=== PATIENT | female | born 1985 | race Caucasian/White ===

== ENCOUNTER 2019-12-06 18:52 | Emergency (ER) | payer OTHER, SELFPAY ==
[2019-12-06 19:33] VITALS: PULSE 78; RESP 18; TEMP 36.6; O2SAT 100
[2019-12-06 20:00] VITALS: BP 136/63
--- NOTE | 2019-12-06 20:20 | ED_ITS ---
HPI - Headache <MAGY Ramos - Last Filed: 12/06/19 21:59> General Chief Complaint: Headache Stated Complaint: Migraine Time Seen by Provider: 12/06/19 19:32 Mode of arrival: Ambulatory Limitations: no limitations History of Present Illness HPI Narrative: 34-year-old female presenting to the emergency department complaining of a migraine that started this morning around 5:00 a.m.. She states she has a history of migraines and this is similar, she usually takes and Excedrin, drinks a Mountain Dew, and takes a nap with a cold rag over his head, however, this is not relieve her migraine today. She took another Excedrin migraine around 2:00 p.m. which reduced the pain but she continues to have symptoms. She reports a dull aching pain crossed her forehead in into temples bilaterally, photophobia, nausea and vomiting, and an occasional or as of ?flashing lights in her vision ?which again she states is normal for her. Patient denies any vision loss, double vision, vertigo, chest pain, shortness of breath, abdominal pain, diarrhea, cough, fevers, or any other concerns. Related Data Previous Rx's Medication Instructions Recorded metoclopramide HCl [Reglan] 10 mg PO Q6H PRN #14 tab 12/06/19 Review of Systems <MGAY Ramos - Last Filed: 12/06/19 21:59> Review of Systems Narrative: REVIEW OF SYSTEMS: GENERAL: Denies fever or chills. HENT: No head trauma. Complains of headache, see HPI. EYES: No loss of vision, double vision, eye pain, or irritation. CARDIOVASCULAR: No chest pain or syncope. RESPIRATORY: No shortness of breath or cough. GASTROINTESTINAL: Complains of vomiting, HPI. GENITOURINARY: No flank pain or dysuria. MUSCULOSKELETAL: No pain, weakness, or deformities. INTEGUMENTARY: No rash, lesions, or pruritus. NEURO: No numbness, tingling, memory loss, or confusion. PSYCH: No behavior or mood changes. Patient History <MAGY Ramos - Last Filed: 12/06/19 21:59> Medical History No significant medical problems (Acute) Social History Smoking Status: Never smoker Smoking Status: Never smoker Substance Use Type: does not use Exam <MAGY Ramos - Last Filed: 12/06/19 21:59> Initial Vital Signs Initial Vital Signs: Vital Signs Temperature 97.9 F 12/06/19 19:33 Pulse Rate 78 12/06/19 19:33 Respiratory Rate 18 12/06/19 19:33 Pulse Oximetry 100 12/06/19 19:33 PHYSICAL EXAMINATION: GENERAL: Well groomed, alert, and cooperative. Answers questions promptly and appropriately. Vital signs noted. HENT: Normocephalic, atraumatic. Ear canals patent. Oral mucosa is pink and moist. EYES: Conjunctiva pink, sclera white, no periorbital swelling. CHEST: Normal to inspection and without deformities. CARDIOVASCULAR: S1 and S2 sounds normal. Regular rate and rhythm, no murmurs, clicks, or bruits. No pedal edema. RESPIRATORY: Normal respiratory rate, trachea midline, airway patent. No stridor, nasal flaring or accessory muscle use. Lungs are clear in all salgado without wheeze, rhonchi, or crackles. GASTROINTESTINAL: Bowel sounds normoactive. Abdomen is soft and non-tender. No organomegaly. MUSCULOSKELETAL: Normal gait and coordination. Equal tone and mass bilaterally. EXTREMITIES: CMS intact. Moves all extremities. SKIN: Warm, dry, soft, appropriate color for ethnicity. No lesions, rashes, or wounds. NEURO: Alert and Oriented X 3. CN III-XII grossly intact. Good coordination. No ataxia, or sensory deficits, or cognitive issues. PSYCH: Appropriate affect and mood. <Eliceo Olsen DO - Last Filed: 12/07/19 02:24> Initial Vital Signs Initial Vital Signs: Vital Signs Temperature 97.9 F 12/06/19 19:33 Pulse Rate 78 12/06/19 19:33 Respiratory Rate 18 12/06/19 19:33 Pulse Oximetry 100 12/06/19 19:33 Course <MAGY Ramos - Last Filed: 12/06/19 21:59> Course Course Narrative: Patient was given IV Benadryl, Toradol, Reglan, and fluids to help with headache. 30 minutes after administration of medication, patient states her headache was completely relieved. She was able to eat and drink without nausea or vomiting. Patient was discharged home per request. Orders Ordered: Discontinued Medications Diphenhydramine HCl (Benadryl) 25 mg IV NOW ONE Stop: 12/06/19 20:07 Last Admin: 12/06/19 20:55 Dose: 25 mg Documented by: LUIS Sodium Chloride (Normal Saline 0.9%) 1,000 mls @ 1,000 mls/hr IV BOLUS ONE Stop: 12/06/19 21:05 Last Infusion: 12/06/19 22:00 Dose: 0 mls/hr Documented by: Admin: 12/06/19 20:57 Dose: 1,000 mls/hr Documented by: LUIS Ketorolac Tromethamine (Toradol) 30 mg IV NOW ONE Stop: 12/06/19 20:07 Last Admin: 12/06/19 20:50 Dose: 30 mg Documented by: LUIS Metoclopramide HCl (Reglan) 10 mg IV NOW ONE Stop: 12/06/19 20:07 Last Admin: 12/06/19 20:57 Dose: 10 mg Documented by: LUIS Vital Signs Vital signs: Vital Signs - 8 hr 12/06/19 19:33 12/06/19 20:00 12/06/19 21:32 Temperature 97.9 F Pulse Rate 78 75 Respiratory Rate 18 16 Blood Pressure [Right Arm] 136/63 141/81 H Pulse Oximetry 100 99 <Eliceo Olsen, DO - Last Filed: 12/07/19 02:24> Orders Ordered: Discontinued Medications Diphenhydramine HCl (Benadryl) 25 mg IV NOW ONE Stop: 12/06/19 20:07 Last Admin: 12/06/19 20:55 Dose: 25 mg Documented by: LUIS Sodium Chloride (Normal Saline 0.9%) 1,000 mls @ 1,000 mls/hr IV BOLUS ONE Stop: 12/06/19 21:05 Last Infusion: 12/06/19 22:00 Dose: 0 mls/hr Documented by: Admin: 12/06/19 20:57 Dose: 1,000 mls/hr Documented by: LUIS Ketorolac Tromethamine (Toradol) 30 mg IV NOW ONE Stop: 03/05/20 20:07 Last Admin: 12/06/19 20:50 Dose: 30 mg Documented by: LUIS Metoclopramide HCl (Reglan) 10 mg IV NOW ONE Stop: 12/06/19 20:07 Last Admin: 12/06/19 20:57 Dose: 10 mg Documented by: LUIS Vital Signs Vital signs: Vital Signs - 8 hr 12/06/19 19:33 12/06/19 20:00 12/06/19 21:32 Temperature 97.9 F Pulse Rate 78 75 Respiratory Rate 18 16 Blood Pressure [Right Arm] 136/63 141/81 H Pulse Oximetry 100 99 MDM - Headache <MAGY Ramos - Last Filed: 12/06/19 21:59> Medical Records Attestation: I reviewed the patient's medical records. Lab Data Attestation: I reviewed the patient's lab results. [facility] Narrative Medical decision making narrative: This is a 34-year-old female with a history of migraines who presents for a migraine that is very similar nature but is not relieved with her usual abortive therapy. Patient reports complete resolution of migraine after administration of IV medications, she is able to eat and drink without difficulty, nausea, or vomiting which decreases my suspicion for severe cranial etiology. Additionally, patient's neuro examination was intact. She was discharged with a prescription for Reglan and told of her headache was to return to take Reglan, Benadryl, and ibuprofen to help with her headache. She was encouraged to follow up with her primary care provider in the next few weeks for further evaluation if she continues to have headaches. Strict return precautions were given for new or worsening symptoms. Patient agrees with plan of care verbalized understanding. Discharge Plan Departure Patient Disposition: Home Clinical Impression: Migraine Qualifiers: Migraine type: with aura Status migrainosus presence: without status migrainosus Intractability: not intractable Qualified Code(s): G43.109 - Migraine with aura, not intractable, without status migrainosus Discharge Date/Time: 12/06/19 22:01 Instructions: DI for Migraine Activity Restrictions/Additional Instructions: Thank you for entrusting me with your care today. As discussed, I prescribed you Reglan (metoclopramide) which helps with nausea. If your headache returns within the next 24-48 hours, take a pill of Reglan, 400-600 mg of ibuprofen, and 25 mg of Benadryl the 1st sign of a headache returning. Increased fluids and rest as needed. Follow up with your primary care provider to discuss further migraine prevention if symptoms continue. Return emergency department for any new or worsening symptoms such as severe pain, uncontrollable vomiting, chest pain, fevers, or any other concerns. Prescriptions: New metoclopramide HCl [Reglan] 10 mg tablet 10 mg PO Q6H PRN (Reason: nausea and vomiting) Qty: 14 RF: 0 <Eliceo Olsen DO - Last Filed: 12/07/19 02:24> Sign Out Provider Sign Out Attestation: I was immediately available in the department for consultation. This documentation has been reviewed and I agree with assessment and plan. Supervised by Eliceo Olsen DO
[2019-12-06] MEDS: KETOROLAC 60 MG/2 ML VIAL 30 MG IV (20:50)
[2019-12-06] MEDS: diphenhydrAMINE 50 MG/ML VIAL 25 MG IV (20:55)
[2019-12-06] MEDS: METOCLOPRAMIDE 10 MG/2 ML INJ IV (20:57)
[2019-12-06] MEDS: SODIUM CHLORIDE 0.9% 1,000 ML 1000 ML IV (20:57)
[2019-12-06 21:32] VITALS: BP 141/81; PULSE 75; RESP 16; O2SAT 99
--- NOTE | 2019-12-06 21:36 | PC.NURSE ---
Water and crackers provided per provider.
== END 2019-12-06 22:01 | disposition home or self-care (01) ==
PROVIDERS: Emergency Provider Nurse Practitioner
DX: G43.109 Migraine with aura, not intractable, without status migrainosus (principal)
CPT/HCPCS: 96361; 96374; 96375; 99284; J1200; J1885; J2765

== ENCOUNTER 2020-07-25 16:29 | Emergency (ER) | payer OTHER, SELFPAY ==
[2020-07-25 16:36] VITALS: BP 156/92; PULSE 79; RESP 18; TEMP 36.4; O2SAT 99; BMI 29.2
[2020-07-25] MEDS: SODIUM CHLORIDE 0.9% 1,000 ML 1000 ML IV (17:43)
[2020-07-25] MEDS: KETOROLAC 60 MG/2 ML VIAL 30 MG IV (17:43)
[2020-07-25] MEDS: METOCLOPRAMIDE 10 MG/2 ML INJ IV (17:44)
[2020-07-25] MEDS: diphenhydrAMINE 50 MG/ML VIAL 25 MG IV (17:45)
[2020-07-25 18:02] VITALS: BP 144/82; PULSE 79; O2SAT 100
--- NOTE | 2020-07-25 18:54 | ED.HA ---
HPI - Headache <PAVITHRA Daniels - Last Filed: 07/25/20 19:00> General Chief Complaint: Headache Stated Complaint: MIGRAINE Time Seen by Provider: 07/25/20 17:07 Source: patient Mode of arrival: Family Vehicle Limitations: no limitations History of Present Illness HPI Narrative: The patient is a 35-year-old female nonsmoker with history of migraines who presents with a chief complaint of migraine since last night. She states that normal she takes Excedrin and drinks amount do and feels better. However today it has not improved. She complains of photophobia, phonophobia, nausea and vomiting x2. She did have an aura, no thunderclap sensation she states that this is a typical bad migraine for her. She denies any confusion or slurred speech. She is requesting a headache cocktail which she has received here before she also has history of a molar . She states she is on day 2 of her menstrual cycle. Related Data Previous Rx's Medication Instructions Recorded metoclopramide HCl [Reglan] 10 mg PO Q6H PRN #14 tab 12/06/19 Allergies Allergy/AdvReac Type Severity Reaction Status Date / Time dextromethorphan Allergy Rash Verified 07/25/20 16:42 [From [place]] Review of Systems <PAVITHRA Daneils - Last Filed: 07/25/20 19:00> Review of Systems Narrative: GENERAL: Denies chills, fatigue, malaise, fever, sweats. HEENT: Denies sinus pain, ear pain, sore throat, difficulty swallowing, dizziness. RESPIRATORY: Denies dyspnea, cough, wheezing, hemoptysis, sputum. CARDIOVASCULAR: Denies chest pain, palpitations, orthopnea, edema, GASTROINTESTINAL: Denies nausea, vomiting, abdominal pain, diarrhea, constipation, melena. : Denies dysuria, frequency, incontinence, hematuria, urinary retention. MUSCULOSKELETAL: denies weakness, joint pain, or bony pain SKIN: Denies rash, skin lesions, or other NEUROLOGIC: See HPI PSYCHIATRIC: No concerning psychosocial issues. 12 point review of systems is negative except for those stated above Patient History <PAVITHRA Daniels - Last Filed: 07/25/20 19:00> Medical History (Updated 07/25/20 @ 18:57 by PAVITHRA Daniels) History of molar (Acute) No significant medical problems (Acute) Social History Smoking Status: Never smoker Smoking Status: Never smoker alcohol intake frequency: 0-2 drinks per day Substance Use Type: does not use Exam <PAVITHRA Daniels - Last Filed: 07/25/20 19:00> Narrative Exam Narrative: GENERAL: This is a well-nourished, well-developed patient, in no acute distress HEAD: Atraumatic. Normocephalic. No temporal or scalp tenderness. EYES: Pupils equal round and reactive. Extraocular motions intact. No scleral icterus. No injection or drainage. No nystagmus bilaterally. ENT: Nose without bleeding, purulent drainage or septal hematoma. Throat without erythema, tonsillar hypertrophy or exudate. Uvula midline. Airway patent. NECK: Trachea midline. No JVD or lymphadenopathy. Supple, nontender, no meningeal signs. CARDIOVASCULAR: Regular rate and rhythm RESPIRATORY: Clear to auscultation. Breath sounds equal bilaterally. No wheezes, rales, or rhonchi. No cough. No increased respiratory effort. No accessory muscle use. GASTROINTESTINAL: Abdomen soft, non-tender, nondistended. No hepato-splenomegaly, or palpable masses. No guarding. EXTREMITIES: No clubbing, cyanosis, or edema. No joint tenderness, effusion, or edema noted. BACK: Nontender without deformity or crepitance. No flank tenderness. NEURO: AOx3. Clear speech. No gross cranial nerve deficit. Strength is equal upper lower extremities bilaterally. Stable gait. SKIN: No rash or erythema on visible skin Initial Vital Signs Initial Vital Signs: Vital Signs Temperature 97.5 F L 07/25/20 16:36 Pulse Rate 79 07/25/20 16:36 Respiratory Rate 18 07/25/20 16:36 Blood Pressure 156/92 H 07/25/20 16:36 Pulse Oximetry 99 07/25/20 16:36 <Alia Fitch DO - Last Filed: 07/26/20 07:29> Initial Vital Signs Initial Vital Signs: Vital Signs Temperature 97.5 F L 07/25/20 16:36 Pulse Rate 79 07/25/20 16:36 Respiratory Rate 18 07/25/20 16:36 Blood Pressure 156/92 H 07/25/20 16:36 Pulse Oximetry 99 07/25/20 16:36 Scores <PAVIHTRA Daniels - Last Filed: 07/25/20 19:00> GCS [place] coma scale eye opening: Spontaneous [place] coma scale verbal response: Orientated [place] coma scale motor response: Obey commands [place] coma scale total score: 15 Course <PAVITHRA Daniels - Last Filed: 07/25/20 19:00> Orders Ordered: Discontinued Medications Diphenhydramine HCl (Benadryl) 25 mg IV NOW ONE Stop: 07/25/20 17:30 Last Admin: 07/25/20 17:45 Dose: 25 mg Documented by: RMARTIN Sodium Chloride (Normal Saline 0.9%) 1,000 mls @ 1,000 mls/hr IV BOLUS ONE Stop: 07/25/20 18:28 Last Infusion: 07/25/20 19:00 Dose: 0 mls/hr Documented by: Admin: 07/25/20 17:43 Dose: 1,000 mls/hr Documented by: MARIOIN Ketorolac Tromethamine (Toradol) 30 mg IV NOW ONE Stop: 07/25/20 17:30 Last Admin: 07/25/20 17:43 Dose: 30 mg Documented by: MARIOIN Metoclopramide HCl (Reglan) 10 mg IV NOW ONE Stop: 07/25/20 17:30 Last Admin: 07/25/20 17:44 Dose: 10 mg Documented by: RANDEE Vital Signs Vital signs: Vital Signs - 8 hr 07/25/20 16:36 07/25/20 18:02 Temperature 97.5 F L Pulse Rate 79 79 Respiratory Rate 18 Blood Pressure 156/92 H 144/82 H Pulse Oximetry 99 100 <Alia Fitch DO - Last Filed: 07/26/20 07:29> Orders Ordered: Discontinued Medications Diphenhydramine HCl (Benadryl) 25 mg IV NOW ONE Stop: 07/25/20 17:30 Last Admin: 07/25/20 17:45 Dose: 25 mg Documented by: RMARTIN Sodium Chloride (Normal Saline 0.9%) 1,000 mls @ 1,000 mls/hr IV BOLUS ONE Stop: 07/25/20 18:28 Last Infusion: 07/25/20 19:00 Dose: 0 mls/hr Documented by: Admin: 07/25/20 17:43 Dose: 1,000 mls/hr Documented by: RANDEE Ketorolac Tromethamine (Toradol) 30 mg IV NOW ONE Stop: 07/25/20 17:30 Last Admin: 07/25/20 17:43 Dose: 30 mg Documented by: RANDEE Metoclopramide HCl (Reglan) 10 mg IV NOW ONE Stop: 07/25/20 17:30 Last Admin: 07/25/20 17:44 Dose: 10 mg Documented by: RANDEE Vital Signs Vital signs: Vital Signs - 8 hr 07/25/20 16:36 07/25/20 18:02 Temperature 97.5 F L Pulse Rate 79 79 Respiratory Rate 18 Blood Pressure 156/92 H 144/82 H Pulse Oximetry 99 100 MDM - Headache <JEAN-PIERRE Daniels- - Last Filed: 07/25/20 19:00> MDM Narrative Medical decision making narrative: The patient is a 35-year-old female who presents with a chief complaint of a migraine that is typical for her. She feels much improved after the above-stated therapies and is requesting to go home. Given her history of migraines, statement that this is a normal migraine for her, lack of neurological signs or symptoms, comfortable discharging patient. Discussed at length follow up with primary care provider in the next few days as well as coming back to the ER for any acute concerns such as neurological changes etcetera. Patient has no questions or concerns upon discharge and states understanding of return precautions as well as follow-up care. Discharge Plan Departure Patient Disposition: Home Clinical Impression: Migraine Qualifiers: Migraine type: unspecified Status migrainosus presence: without status migrainosus Intractability: not intractable Qualified Code(s): G43.909 - Migraine, unspecified, not intractable, without status migrainosus Discharge Date/Time: 07/25/20 19:02 Instructions: DI for Migraine Activity Restrictions/Additional Instructions: Thank you for trusting us with your care today. As discussed, please follow-up with primary care provider in the next few days. Please rest and push fluids over the next few days. Please come back to the emergency department for any acute concerns such as neurological changes or Prescriptions: No Action metoclopramide HCl [Reglan] 10 mg tablet 10 mg PO Q6H PRN (Reason: nausea and vomiting) Qty: 14 RF: 0 <Alia Fitch DO - Last Filed: 07/26/20 07:29> Cosign ED Attending Cosignature Attestation: I was immediately available in the department for consultation. Documentation has been reviewed. I agree with assessment and plan.
== END 2020-07-25 19:02 | disposition home or self-care (01) ==
PROVIDERS: Emergency Provider Nurse Practitioner Family
DX: G43.909 Migraine, unspecified, not intractable, without status migrainosus (principal)
CPT/HCPCS: 96361; 96374; 96375; 99283; 99284; J1200; J1885; J2765

== ENCOUNTER 2020-09-07 09:42 | Emergency (ER) | payer OTHER, SELFPAY ==
[2020-09-07 10:31] VITALS: BP 144/89; PULSE 66; RESP 14; TEMP 36.4; O2SAT 99; BMI 29.1
[2020-09-07 11:45] VITALS: BP 146/84; PULSE 78; RESP 18; O2SAT 100
--- NOTE | 2020-09-07 12:09 | ED_ITS ---
HPI - Headache <MAGY Hernandez - Last Filed: 09/07/20 13:54> General Chief Complaint: Headache Stated Complaint: migraine, started last night Time Seen by Provider: 09/07/20 12:01 Source: patient Mode of arrival: Ambulatory Limitations: no limitations History of Present Illness HPI Narrative: This is a 35 year female, nonsmoker, who has known history of migraine headache presents to ED with chief complain of migraine headache mostly located in left side of her head with nausea but no vomiting, phonophobia, photophobia. States today's headaches exactly like her previous migraine headaches. Reports migraine headaches since age 12. At times she has aura but not with this headache. Patient states headache triggers usually lack of sleep course or stress. Patient has 1-year-old infant child is currently working on sleep cycle and has not had sleeping well and has increase stressed at work. Patient reports onset of headache started last night at 9:00 p.m. and she had taken Excedrin migraine headache with mountain dew which usually helps with her headache and went to bed. She woke up at 7:00 a.m. with remaining headache and had repeated home treatment once again but headache did not resolved by 9:00 a.m. and decided to come to ED. patient denies fever, chills, nuchal rigidity, unusual rashes, facial droops, weakness to 1 side of body, vision change, or speech difficulty. Patient denies any recent traumas to head. Reports had some short of breath while wearing a mask but when she removed the mask at waiting area and she was able to breathe better and no longer has chest pain. Patient has a history of a molar in June 2020 and followed with a D&C. She denies any patient's since then. LMP 3 weeks ago and she had uses control patch and denies any chances for at this time. Related Data Previous Rx's Medication Instructions Recorded metoclopramide HCl [Reglan] 10 mg PO Q6H PRN #14 tab 12/06/19 Allergies Allergy/AdvReac Type Severity Reaction Status Date / Time dextromethorphan Allergy Rash Verified 09/07/20 10:35 [From [employer] [employer]] Review of Systems <MAGY Hernandez - Last Filed: 09/07/20 13:54> Review of Systems Narrative: General: Denies fever, chills, fatigue, malaise, sweats. HEENT: Denies sinus pain, ear pain, sore throat, difficulty swallowing, dizziness. Respiratory: Denies dyspnea, cough, wheezing, hemoptysis, sputum. Cardiovascular: Denies chest pain, palpitations, orthopnea, edema. Gastrointestinal: Denies nausea, vomiting, abdominal pain, diarrhea, constipation, melena. : Denies dysuria, frequency, incontinence, hematuria, urinary retention. Musculoskeletal: Denies weakness, joint pain or bony pain. Skin: Denies rash, skin lesions, or other. Neurologic: See HPI Psychiatric: No concerning psychosocial issues. 12-point review of systems is negative except for those stated above. Patient History <MAGY Hernandez - Last Filed: 09/07/20 13:54> Medical History History of molar No significant medical problems Social History Smoking Status: Never smoker Smoking Status: Never smoker alcohol intake frequency: 0-2 drinks per day Substance Use Type: does not use Exam <MAGY Hernandez - Last Filed: 09/07/20 13:54> Narrative Exam Narrative: GEN: Alert, oriented x 3, patient resting in dark with eyes covered with towel in quiet room. Head: Normal cephalic, atraumatic. No scalp or temporal tenderness, palpable mass or rash. EYES: Pupils are equal, round, and reactive to light and accommodation. Extraocular muscles are intact bilaterally. There is no subconjunctival hemorrhage, exudate and sclera non-icteric. ENT: Hearing grossly intact. Airway patent. Neck: Trachea in midline. No JVD, non-tender without lymphadenopathy. No masses or thyroid megaly. Supple, non-tender and no meningeal signs. CARDIAC: Normal regular rate and rhythm without murmurs, gallops, or rubs. No chest wall tenderness. No peripheral edema, cyanosis or pallor. Capillary refill is less than 2 seconds. RESPIRATORY: Lungs are clear to auscultate bilaterally. No cough, wheezes, rales, or rhonchi. No stridor, respiratory distress, increase work of breathing, or accessary muscle used. ABD: Abdomen soft, nontender and non-distended. No guarding or rebound ten derness to palpate. Bowel sounds are normal in all 4 quadrants. There is no palpable masses or organomegaly. EXT: Full painless ROM of all extremities with no loss of sensation, strength, effusion or edema. SKIN: Warm, dry, normal color for patient. No erythema, lesions or rash over visible areas. BACK: Nontender without deformity or crepitance. No flank tenderness. NEUROLOGICAL: Alert and oriented to place, time and person. Sensation and motor function intact bilaterally. No facial droops, dysphasia. PSYCHIATRIC: Good judgement and reason, without hallucinations, abnormal affect or abnormal behaviors during the examination. Patient is not suicidal. Initial Vital Signs Initial Vital Signs: Vital Signs Temperature 97.6 F 09/07/20 10:31 Pulse Rate 66 09/07/20 10:31 Respiratory Rate 14 09/07/20 10:31 Blood Pressure 144/89 H 09/07/20 10:31 Pulse Oximetry 99 09/07/20 10:31 <Marsha Delarosa DO - Last Filed: 09/07/20 17:32> Initial Vital Signs Initial Vital Signs: Vital Signs Temperature 97.6 F 09/07/20 10:31 Pulse Rate 66 09/07/20 10:31 Respiratory Rate 14 09/07/20 10:31 Blood Pressure 144/89 H 09/07/20 10:31 Pulse Oximetry 99 09/07/20 10:31 Scores <MAGY Hernandez - Last Filed: 09/07/20 13:54> GCS [place] coma scale eye opening: Spontaneous [place] coma scale verbal response: Orientated [place] coma scale motor response: Obey commands [place] coma scale total score: 15 Course <MAGY Hernandez - Last Filed: 09/07/20 13:54> Orders Ordered: Discontinued Medications Diphenhydramine HCl (Diphenhydramine 50 Mg/Ml Vial) 25 mg IV NOW ONE Stop: 09/07/20 12:09 Last Admin: 09/07/20 12:18 Dose: 25 mg Documented by: CARLOS Sodium Chloride (Normal Saline 0.9%) 1,000 mls @ 1,000 mls/hr IV BOLUS ONE Stop: 09/07/20 13:07 Last Infusion: 09/07/20 13:19 Dose: 0 mls/hr Documented by: Admin: 09/07/20 12:18 Dose: 1,000 mls/hr Documented by: CARLOS Ketorolac Tromethamine (Ketorolac 60 Mg/2 Ml Vial) 15 mg IV NOW ONE Stop: 09/07/20 12:09 Last Admin: 09/07/20 12:17 Dose: 15 mg Documented by: CARLOS Metoclopramide HCl (Metoclopramide 10 Mg/2 Ml Inj) 10 mg IV NOW ONE Stop: 09/07/20 12:09 Last Admin: 09/07/20 12:17 Dose: 10 mg Documented by: CARLOS Reevaluation(s) Reevaluation #1: Patient reports headache improved and down to 1/10 at this time . Nausea resolved and she is ready to go home. Time: 12:45 Vital Signs Vital signs: Vital Signs - 8 hr 09/07/20 10:31 09/07/20 11:45 Temperature 97.6 F Pulse Rate 66 78 Respiratory Rate 14 18 Blood Pressure 144/89 H 146/84 H Pulse Oximetry 99 100 <Marsha Delarosa, DO - Last Filed: 09/07/20 17:32> Orders Ordered: Discontinued Medications Diphenhydramine HCl (Diphenhydramine 50 Mg/Ml Vial) 25 mg IV NOW ONE Stop: 09/07/20 12:09 Last Admin: 09/07/20 12:18 Dose: 25 mg Documented by: CARLOS Sodium Chloride (Normal Saline 0.9%) 1,000 mls @ 1,000 mls/hr IV BOLUS ONE Stop: 09/07/20 13:07 Last Infusion: 09/07/20 13:19 Dose: 0 mls/hr Documented by: Admin: 09/07/20 12:18 Dose: 1,000 mls/hr Documented by: CARLOS Ketorolac Tromethamine (Ketorolac 60 Mg/2 Ml Vial) 15 mg IV NOW ONE Stop: 09/07/20 12:09 Last Admin: 09/07/20 12:17 Dose: 15 mg Documented by: CARLOS Metoclopramide HCl (Metoclopramide 10 Mg/2 Ml Inj) 10 mg IV NOW ONE Stop: 09/07/20 12:09 Last Admin: 09/07/20 12:17 Dose: 10 mg Documented by: CARLOS Vital Signs Vital signs: Vital Signs - 8 hr 09/07/20 10:31 09/07/20 11:45 Temperature 97.6 F Pulse Rate 66 78 Respiratory Rate 14 18 Blood Pressure 144/89 H 146/84 H Pulse Oximetry 99 100 MDM - Headache <Woody MAGY Hooper - Last Filed: 09/07/20 13:54> Differential Diagnosis Differential diagnosis: Likely migraine and headache Medical Records Attestation: I reviewed the patient's medical records. [facility] Narrative Medical decision making narrative: This is a 35-year-old female who presents to ED with acute migraine headache filled with home therapy by taking Excedrin headache medication and drinking Mountain Dew since last night and after repeating on this morning. Patient does not appears to be toxic. She is afebrile with within normal limits of vital signs. She is neurological intact. States headache very similar to previous migraine headaches and usually triggered by stress or lack of sleep which she is experiencing both at this time. Patient states usually headache cocktail works well when she has acute migraine headache. Medicated patient with IV fluid, IV Benadryl, Reglan, and Toradol with good result. Return precautions were discussed with patient and advised to get some rest rest of the today. Patient verbalized understanding in agreement with the treatment plan. Discharge Plan Departure Patient Disposition: Home Clinical Impression: Migraine Qualifiers: Migraine type: unspecified Status migrainosus presence: without status migrainosus Intractability: not intractable Qualified Code(s): G43.909 - Migraine, unspecified, not intractable, without status migrainosus Instructions: DI for Migraine Activity Restrictions/Additional Instructions: You have been diagnosed with [headache likely your typical migraine headache episode.]. What to do: *Take your medications as directed. *Follow up with your primary care provider in 2-3 days, call for an appointment. Let them know you were seen in the ED and that we asked you to be seen in follow up. *Return to ED if you have any new, worsening, or concerning symptoms, such as [worsening pain, stroke-like symptoms, fever, chest pain, dyspnea, able to tolerate fluids, unusual rashes, or any acute concerns]. Prescriptions: No Action metoclopramide HCl [Reglan] 10 mg tablet 10 mg PO Q6H PRN (Reason: nausea and vomiting) Qty: 14 RF: 0 Referrals: [facility] [Outside] <Marsha Delarosa DO - Last Filed: 09/07/20 17:32> Cosign ED Attending Cosignature Attestation: I was immediately available in the department for consultation. This documentation has been reviewed and I agree with assessment and plan. Supervised by Marsha Delarosa DO
[2020-09-07] MEDS: KETOROLAC 60 MG/2 ML VIAL 15 MG IV (12:17)
[2020-09-07] MEDS: METOCLOPRAMIDE 10 MG/2 ML INJ IV (12:17)
[2020-09-07] MEDS: diphenhydrAMINE 50 MG/ML VIAL 25 MG IV (12:18)
[2020-09-07] MEDS: SODIUM CHLORIDE 0.9% 1,000 ML 1000 ML IV (12:18)
== END 2020-09-07 13:52 | disposition home or self-care (01) ==
PROVIDERS: Emergency Provider Nurse Practitioner Family
DX: G43.909 Migraine, unspecified, not intractable, without status migrainosus (principal); R11.0 Nausea; R06.02 Shortness of breath
CPT/HCPCS: 36415; 96361; 96374; 96375; 99283; 99284; J1200; J1885; J2765

== ENCOUNTER 2020-11-29 19:06 | Emergency (ER) | payer OTHER, SELFPAY ==
[2020-11-29 19:13] VITALS: BP 169/95; PULSE 88; RESP 17; TEMP 35.8; O2SAT 99; BMI 29.1
[2020-11-29] MEDS: ONDANSETRON 4 MG ODT PO (19:49)
[2020-11-29] MEDS: ONDANSETRON 4 MG/2 ML INJ (20:36)
[2020-11-29] MEDS: SODIUM CHLORIDE 0.9% 1,000 ML 1000 ML IV (20:36)
[2020-11-29] MEDS: KETOROLAC 60 MG/2 ML VIAL 30 MG IV (21:39)
[2020-11-29] MEDS: diphenhydrAMINE 50 MG/ML VIAL 25 MG IV (21:39)
[2020-11-29] MEDS: METOCLOPRAMIDE 10 MG/2 ML INJ IV (21:39)
--- NOTE | 2020-11-29 22:13 | ED_ITS ---
HPI - Headache General Chief Complaint: Headache Stated Complaint: nausea, migraine Time Seen by Provider: 11/29/20 21:28 Source: patient Mode of arrival: Ambulatory Limitations: no limitations History of Present Illness HPI Narrative: Patient is a 35-year-old female with history of migraine headaches presenting with migraine headache. She states that actually started yesterday have the pain with her typical pain as she had no numbness tingling or weakness sensitive to light and noise which is typical for her. Further nausea has persisted. She said the pain went away but she still feels nauseous. No abdominal pain. She denies any fever or chills. MD Complaint: migraine Onset (ago): day(s) (1) Severity: similar to previous episodes Related Data Home Medications Medication Instructions Recorded Confirmed cetirizine [Zyrtec] 20 mg PO DAILY 11/29/20 11/29/20 loratadine [Claritin] 20 mg PO BEDTIME 11/29/20 11/29/20 magnesium 400 mg PO DAILY 11/29/20 11/29/20 propranolol 20 mg PO BID 11/29/20 11/29/20 Previous Rx's Medication Instructions Recorded metoclopramide HCl [Reglan] 10 mg PO Q6H PRN #14 tab 12/06/19 Allergies Allergy/AdvReac Type Severity Reaction Status Date / Time dextromethorphan Allergy Rash Verified 11/29/20 19:18 [From [facility]] Review of Systems Review of Systems Narrative: GENERAL: Denies chills, fatigue, malaise, fever, sweats, travel HEENT: Denies sinus pain, ear pain, sore throat, difficulty swallowing, neck pain RESPIRATORY: Denies dyspnea, cough, wheezing, hemoptysis, sputum. CARDIOVASCULAR: Denies chest pain, palpitations, orthopnea, edema GASTROINTESTINAL: + nausea,+ vomiting : Denies dysuria, frequency, incontinence, hematuria, urinary retention, flank pain. MUSCULOSKELETAL: Denies weakness, joint pain, or bony pain SKIN: No rash, no erythema, no pruritus NEUROLOGIC: See HPI PSYCHIATRIC: No concerning psychosocial issues. 12 point review of systems is negative except for those stated above and HPI Patient History Medical History History of molar No significant medical problems Social History (Reviewed 11/29/20 @ 22:15 by NEETA Saleh Smoking Status: Never smoker Smoking Status: Never smoker alcohol intake frequency: 0-2 drinks per day Substance Use Type: does not use Exam Initial Vital Signs Initial Vital Signs: Vital Signs Temperature 96.5 F L 11/29/20 19:13 Pulse Rate 88 11/29/20 19:13 Respiratory Rate 17 11/29/20 19:13 Blood Pressure 169/95 H 11/29/20 19:13 Pulse Oximetry 99 11/29/20 19:13 GENERAL: Well-appearing, well-nourished and in no acute distress. HEENT: Head atraumatic,EOMI, pupils reactive, face symmetric, moist mucous membranes CARDIOVASCULAR: Regular rate and rhythm without murmurs, rubs or gallops. RESPIRATORY: Breath sounds equal bilaterally, no wheezes rales or rhonchi. ABDOMEN: Soft, nontender. Normoactive bowel sounds all 4 quadrants. No guarding or rebound. EXTREMITIES: Normal range of motion, no clubbing or edema. Neurovascularly intact NEUROLOGICAL: Alert and oriented x4.Normal gait and speech. Cranial nerves II through XII grossly intact. Metal Cleaner strength equal bilaterally SKIN: Warm, dry, no laceration, no petechiae, no rashes or lesions. Course Orders Ordered: Discontinued Medications Diphenhydramine HCl (Diphenhydramine 50 Mg/Ml Vial) 25 mg IV NOW ONE Stop: 11/29/20 21:29 Last Admin: 11/29/20 21:39 Dose: 25 mg Documented by: SAHIL Sodium Chloride (Normal Saline 0.9%) 1,000 mls @ 1,000 mls/hr IV BOLUS ONE Stop: 11/29/20 21:33 Last Infusion: 11/29/20 21:32 Dose: 0 mls/hr Documented by: Admin: 11/29/20 20:36 Dose: 1,000 mls/hr Documented by: SAHIL Ketorolac Tromethamine (Ketorolac 60 Mg/2 Ml Vial) 30 mg IV NOW ONE Stop: 11/29/20 21:29 Last Admin: 11/29/20 21:39 Dose: 30 mg Documented by: SAHIL Metoclopramide HCl (Metoclopramide 10 Mg/2 Ml Inj) 10 mg IV NOW ONE Stop: 11/29/20 21:29 Last Admin: 11/29/20 21:39 Dose: 10 mg Documented by: SAHIL Ondansetron HCl (Ondansetron 4 Mg Odt) 4 mg PO NOW ONE Stop: 11/29/20 19:46 Last Admin: 11/29/20 19:49 Dose: 4 mg Documented by: KATY Ondansetron HCl (Ondansetron 4 Mg Odt Prepack) 1 bottle MISC SEEINSTR ONE Stop: 11/29/20 22:28 Last Admin: 11/29/20 22:30 Dose: 1 bottle Documented by: SAHIL Vital Signs Vital signs: Vital Signs - 8 hr 11/29/20 19:13 11/29/20 22:30 Temperature 96.5 F L Pulse Rate 88 80 Respiratory Rate 17 16 Blood Pressure 169/95 H 136/74 Pulse Oximetry 99 97 MDM - Headache MDM Narrative Medical decision making narrative: Patient is overall feeling better however while in the emergency department her headache came back are however it resolved with Toradol Reglan and Benadryl. She now feels ready and able to go home. At this time symptoms seem consistent with migraine headache no focal deficits or new symptoms to indicate need for head CT or blood work. Requesting Zofran for discharge Discharge Plan Departure Patient Disposition: Home Clinical Impression: Migraine Instructions: DI for Migraine Activity Restrictions/Additional Instructions: *You have been diagnosed with migraine headache *What to do: Increase fluid as tolerated. Recommend resting and sleeping. *Continue to take medications as directed Zofran 4 mg every 8 hours if needed for nausea or vomiting *Follow up with your primary care provider in 2-3 days *Return to ER if you should have worsening headache persistent vomiting weakness numbness or tingling or any new, worsening or concerning symptoms Prescriptions: No Action metoclopramide HCl [Reglan] 10 mg tablet 10 mg PO Q6H PRN (Reason: nausea and vomiting) Qty: 14 RF: 0 propranolol 10 mg tablet 20 mg PO BID RF: 0 cetirizine [Zyrtec] 10 mg Tablet 20 mg PO DAILY RF: 0 loratadine [Claritin] 10 mg Tablet 20 mg PO BEDTIME RF: 0 magnesium 200 mg Tablet 400 mg PO DAILY RF: 0 Referrals: [facility] [Outside]
[2020-11-29 22:30] VITALS: BP 136/74; PULSE 80; RESP 16; O2SAT 97
[2020-11-29] MEDS: ONDANSETRON 4 MG ODT PREPACK 1 BOTTLE MISC (22:30)
== END 2020-11-29 22:32 | disposition home or self-care (01) ==
PROVIDERS: Emergency Provider Emergency Medicine
DX: G43.909 Migraine, unspecified, not intractable, without status migrainosus (principal); R11.2 Nausea with vomiting, unspecified
CPT/HCPCS: 36415; 96361; 96374; 96375; 99283; 99284; J1200; J1885; J2405; J2765

== ENCOUNTER 2021-01-25 22:00 | Emergency (ER) | payer OTHER, SELFPAY ==
[2021-01-25 22:08] VITALS: BP 144/104; PULSE 86; RESP 18; TEMP 36.8; O2SAT 99; BMI 29.9
[2021-01-25 22:22] VITALS: PULSE 94; O2SAT 98
--- NOTE | 2021-01-25 22:25 | ED.HA ---
HPI - Headache General Chief Complaint: Headache Stated Complaint: migraine with severe nausea Time Seen by Provider: 01/25/21 22:05 Source: patient Mode of arrival: Ambulatory Limitations: no limitations History of Present Illness HPI Narrative: 35-year-old female nonsmoker with history of migraines presents with a chief complaint of multiple episodes of nausea and vomiting for the past few days. She has since developed a headache that is mild to moderate and consistent with prior episodes of migraine. She denies any fever or chills, recent exposure to bad food or antibiotics nor others with similar symptoms. She is actively trying to become . She denies dysuria, frequency or urgency. She denies vaginal bleeding or discharge. Her headache as stated is mild and seems to be worsened by bright lights. MD Complaint: headache and migraine Onset (ago): day(s) Onset description: gradual Location: right Severity: mild Severity scale (1-10): 2 Quality: aching, throbbing and similar to previous headaches Associated symptoms: nausea and vomiting Treatments prior to arrival: none Related Data Home Medications Medication Instructions Recorded Confirmed cetirizine [Zyrtec] 20 mg PO DAILY 11/29/20 11/29/20 loratadine [Claritin] 20 mg PO BEDTIME 11/29/20 11/29/20 magnesium 400 mg PO DAILY 11/29/20 11/29/20 propranolol 20 mg PO BID 11/29/20 11/29/20 Previous Rx's Medication Instructions Recorded metoclopramide HCl [Reglan] 10 mg PO Q6H PRN #14 tab 12/06/19 metoclopramide HCl [Reglan] 10 mg PO Q6H PRN #10 tab 01/26/21 ondansetron 4 mg PO TID-QID PRN #10 tab 01/26/21 Allergies Allergy/AdvReac Type Severity Reaction Status Date / Time dextromethorphan Allergy Rash Verified 11/29/20 19:18 [facility] Systems Constitutional Constitutional: Denies chills, Denies fatigue, Denies fever(s), Denies frequent falls, Reports headache(s), Denies lethargy and Denies weakness Eyes Eyes: Denies change in vision, Denies eye discharge, Denies irritation and Denies loss of vision ENT Ears, Nose, Mouth, and Throat: Denies change in voice, Denies dizziness, Reports headache(s), Denies neck pain, Denies sore throat and Denies throat swelling Cardiovascular Cardiovascular: Denies chest pain, Denies irregular heart rhythm, Denies lightheadedness, Denies palpitations, Denies dyspnea, Denies dyspnea on exertion and Denies orthopnea Respiratory Respiratory: Denies cough, Denies dyspnea, Denies dyspnea on exertion and Denies wheezing Gastrointestinal Gastrointestinal: Denies change in bowel habits, Denies diarrhea, Reports nausea and Reports vomiting Musculoskeletal Musculoskeletal: Denies neck pain and Denies numbness Integumentary/Breasts Skin/Breast: Denies pruritus, Denies erythema, Denies rash and Denies wounds Neurologic Neurologic: Denies behavioral changes, Denies confusion, Denies dizziness, Denies frequent falls, Reports headache(s), Denies loss of vision, Denies numbness and Denies weakness Psychiatric Psychiatric: Denies anxiety, Denies behavioral changes, Denies confusion, Denies depression, Denies homicidal ideation and Denies suicidal ideation Endocrine Endocrine: Denies fatigue, Denies flushing and Denies palpitations Hematologic/Lymphatic Hematologic/Lymphatic: Denies easy bruising Allergic/Immunologic Allergic/Immunologic: Denies urticaria, Denies throat swelling and Denies wheezing Patient History Medical History History of molar No significant medical problems Social History Smoking Status: Never smoker Smoking Status: Never smoker alcohol intake frequency: 0-2 drinks per day Substance Use Type: does not use Exam Narrative Exam Narrative: GENERAL: [35] year old patient appears stated age. Well-nourished, well-developed patient, in mild distress. HEAD: Atraumatic. Normocephalic. EYES: Pupils equal round and reactive. Extraocular motions intact. No scleral icterus. No injection or drainage. ENT: Nose without bleeding, purulent drainage. Throat without erythema, tonsillar hypertrophy or exudate. Airway patent. NECK: Trachea midline. Non tender CARDIOVASCULAR: Regular rate and rhythm without murmurs, gallops, or rubs. RESPIRATORY: Clear to auscultation. Breath sounds equal bilaterally. No wheezes, rales, or rhonchi. GASTROINTESTINAL: Abdomen soft, non-tender, nondistended. EXTREMITIES: No edema or joint tenderness. BACK: Nontender without deformity or crepitance. No flank tenderness. NEURO: AOx3. SKIN: No rash or erythema of visible areas NIH Stroke Scale 1a. LOC: Patient is alert and keenly responsive (0) 1b. LOC Questions: Patient answers both LOC questions accurately (0) 1c. LOC Commands: Patient performs both tasks correctly (0) 2. Best Gaze: Normal (0) 3. Visual: No visual loss (0) 4. Facial palsy: Normal symmetrical movements (0) 5. Motor arm: No drift (0) 6. Motor leg: No drift (0) 7. Limb ataxia: Absent (0) 8. Sensory: Normal (0) 9. Best language: No aphasia; normal (0) 10. Dysarthria: Normal (0) 11. Extinction and inattention: No abnormality (0) NIHSS: 0 Initial Vital Signs Initial Vital Signs: Vital Signs Temperature 98.2 F 01/25/21 22:08 Pulse Rate 86 01/25/21 22:08 Respiratory Rate 18 01/25/21 22:08 Blood Pressure 144/104 H 01/25/21 22:08 Pulse Oximetry 99 01/25/21 22:08 Course Course Course Narrative: Patient chose tremendous improvement after above-stated therapies. She is no longer having nausea or vomiting, and denies headache. She is sitting upright and requesting discharge. She is tolerating oral hydration. Return precautions given and questions answered to her apparent satisfaction Orders Ordered: Discontinued Medications Diphenhydramine HCl (Diphenhydramine 50 Mg/Ml Vial) 25 mg IV NOW ONE Stop: 01/25/21 22:26 Last Admin: 01/25/21 22:39 Dose: 25 mg Documented by: GULSHAN Sodium Chloride (Normal Saline 0.9%) 1,000 mls @ 1,000 mls/hr IV BOLUS ONE Stop: 01/25/21 23:24 Last Admin: 01/25/21 22:37 Dose: 1,000 mls/hr Documented by: GULSHAN Metoclopramide HCl (Metoclopramide 10 Mg/2 Ml Inj) 10 mg IV NOW ONE Stop: 01/25/21 22:26 Last Admin: 01/25/21 22:40 Dose: 10 mg Documented by: GULSHAN Ondansetron HCl (Ondansetron 4 Mg Odt Prepack) 1 bottle MISC SEEINSTR ONE Stop: 01/26/21 00:14 Vital Signs Vital signs: Vital Signs - 8 hr 01/25/21 22:08 01/25/21 22:22 01/25/21 22:30 Temperature 98.2 F Pulse Rate 86 94 H 92 H Respiratory Rate 18 Blood Pressure 144/104 H Pulse Oximetry 99 98 99 01/25/21 23:00 01/25/21 23:30 Temperature Pulse Rate 89 90 Respiratory Rate Blood Pressure Pulse Oximetry 97 98 MDM - Headache Lab Data Labs: Point of Care Testing Test Results Negative Glucose POC 123 Urine Dip Bedside Urine Glucose Negative Bedside Urine Bilirubin - Negative Bedside Urine Ketone - Negative Urine Specific [place] 1.015 Bedside Urine Occult Blood +/- Bedside Urine pH 7.5 Bedside Urine Protein + 30 Bedside Urine Urobilinogen - Negative Bedside Urine Nitrite - Negative Bedside Urine Leukocytes - Negative Esterase Discharge Plan Departure Patient Disposition: Home Clinical Impression: Headache Qualifiers: Headache type: unspecified Headache chronicity pattern: unspecified pattern Intractability: not intractable Qualified Code(s): R51.9 - Headache, unspecified Vomiting Qualifiers: Vomiting type: unspecified Vomiting Intractability: non-intractable Nausea presence: with nausea Qualified Code(s): R11.2 - Nausea with vomiting, unspecified Instructions: DI for Vomiting -- Adult, DI for Headache Activity Restrictions/Additional Instructions: *You have been diagnosed with [headache and vomiting] *What to do: *Take medications as directed *Follow up with your primary care provider in 2-3 days, call for an appointment. Let them know you were seen in the Emergency Department and that we ask that you be seen in follow up *Return to ER if you should have any new, worsening or concerning symptoms Prescriptions: New ondansetron 4 mg tablet,disintegrating 4 mg PO TID-QID PRN (Reason: nausea and vomiting) Qty: 10 RF: 0 metoclopramide HCl [Reglan] 10 mg tablet 10 mg PO Q6H PRN (Reason: nausea and vomiting) Qty: 10 RF: 0 No Action metoclopramide HCl [Reglan] 10 mg tablet 10 mg PO Q6H PRN (Reason: nausea and vomiting) Qty: 14 RF: 0 propranolol 10 mg tablet 20 mg PO BID RF: 0 cetirizine [Zyrtec] 10 mg Tablet 20 mg PO DAILY RF: 0 loratadine [Claritin] 10 mg Tablet 20 mg PO BEDTIME RF: 0 magnesium 200 mg Tablet 400 mg PO DAILY RF: 0
[2021-01-25 22:30] VITALS: PULSE 92; O2SAT 99
[2021-01-25] MEDS: SODIUM CHLORIDE 0.9% 1,000 ML 1000 ML IV (22:37)
[2021-01-25] MEDS: diphenhydrAMINE 50 MG/ML VIAL 25 MG IV (22:39)
[2021-01-25] MEDS: METOCLOPRAMIDE 10 MG/2 ML INJ IV (22:40)
[2021-01-25 23:00] VITALS: PULSE 89; O2SAT 97
[2021-01-25 23:30] VITALS: PULSE 90; O2SAT 98
[2021-01-26] MEDS: ONDANSETRON 4 MG ODT PREPACK 1 BOTTLE MISC (00:57)
[2021-01-26 01:05] VITALS: BP 140/97; PULSE 91; RESP 18; TEMP 36.9; O2SAT 97
== END 2021-01-26 01:07 | disposition home or self-care (01) ==
PROVIDERS: Emergency Provider Emergency Medicine
DX: R51.9 Headache, unspecified (principal); R11.2 Nausea with vomiting, unspecified
CPT/HCPCS: 36415; 81003; 81025; 82962; 96361; 96374; 96375; 99284; J1200; J2765